=== PATIENT | male | born 1980 | race Caucasian/White ===

== ENCOUNTER 2016-08-05 19:00 | Emergency (ER) | payer OTHER ==
[~2016-08-05] VITALS: Ht 175.3 cm; Wt 84.1 kg
[~2016-08-05 19:00] MED LIST: AMBIEN10 MG PO; BUSPIRONE; CEFTIN500 MG PO; CIPRO 500MG TA500 MG PO; FIORICET 325 MG1 TAB PO; FLEXERIL; IBUPROFEN800 MG PO; KLONOPIN PO; NO HOME MEDICATIONS; NORCO 325 MG-51 TAB PO; PERCOCET 5/321 UDTAB PO; PHENERGAN 25 TA25 MG PO; PYRIDIUM200 M1 PO
[2016-08-05 19:10] VITALS: BP 156/89; TEMP 98
[2016-08-05] MEDS ORDERED: FLEXERIL 1010 MG/TAB PO (20:39)
[2016-08-05 20:58] VITALS: PULSE 70
== END 2016-08-05 20:59 | disposition home or self-care (01) ==
LOC: COL.ER 19:00
DX: M54.2 Cervicalgia (principal)
CPT/HCPCS: J1885; J2360